=== PATIENT | female | born 1985 | race Caucasian/White ===

== ENCOUNTER 2020-09-04 07:16 | Emergency (ER) | payer MEDICAID ==
[2020-09-04] MEDS ORDERED: LIDOCAINE HCL 2% 20ML ONE (07:59)
== END 2020-09-04 08:54 | disposition home or self-care (01) ==
LOC: EDH 07:16
DX: S62.616A Displaced fracture of proximal phalanx of right little finger, initial encounter for closed fracture (principal); L40.9 Psoriasis, unspecified; Z72.0 Tobacco use; W22.8XXA Striking against or struck by other objects, initial encounter; Y93.89 Activity, other specified; Y92.89 Other specified places as the place of occurrence of the external cause; Y99.8 Other external cause status
CPT/HCPCS: 26725; 73130 ×2; 99284; J3490; 26742